=== PATIENT | female | born 1990 | race Caucasian/White ===

== ENCOUNTER 2017-07-02 17:24 | Emergency (ER) | payer OTHER ==
[~2017-07-02] VITALS: Ht 162.6 cm; Wt 72.6 kg
[2017-07-02 17:49] VITALS: BP 113/65
[2017-07-02] MEDS ORDERED: ALPRAZolam 0.5 MG TAB PO ONE (21:15)
== END 2017-07-02 22:05 | disposition home or self-care (01) ==
LOC: ER 17:34
DX: F41.9 Anxiety disorder, unspecified (principal); F32.9 Major depressive disorder, single episode, unspecified; Z76.0 Encounter for issue of repeat prescription